=== PATIENT | female | born 1945 | race Caucasian/White ===

== ENCOUNTER 2016-08-22 08:51 | Observation (INO) | payer OTHER ==
[2016-08-22] MEDS ORDERED: BUPIVACAINE/EPI 0.25% 30 ML SDV ONE (09:16)
[2016-08-22] MEDS ORDERED: LIDOCAINE 1% 5 ML SDV ONE (09:30)
[2016-08-22] MEDS ORDERED: LR 1,000 ML IV ONE (09:46)
[2016-08-22] MEDS ORDERED: fentaNYL 100 MCG/2 ML INJ ONE (11:04)
[2016-08-22] MEDS ORDERED: PROPOFOL/EMULSION 500 MG/50 ML BOTTLE IV ONE (11:04)
[2016-08-22] MEDS ORDERED: CLINDAMYCIN 600 MG/DEXTROSE/50 ML BAG IV ONE (11:14)
[2016-08-22] MEDS ORDERED: ACETAMINOPHEN 325 MG TAB PO PRN (11:26)
[2016-08-22] MEDS ORDERED: CLINDAMYCIN 600 MG/DEXTROSE 50 ML IV ONE (11:30)
[2016-08-22] MEDS ORDERED: NS 1,000 ML IV SCH (11:30)
[2016-08-22] MEDS ORDERED: IBUPROFEN 200 MG TAB PO PRN (11:32)
--- NOTE | 2016-08-22 12:17 | GOP ---
[f rep st] OPERATIVE REPORT DATE OF OPERATION: 08/22/2016 SURGEON: Devin Correa MD BREAD JOCKEY: None. ANESTHESIA: Conscious sedation. 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 PROCEDURE PERFORMED: Distal ligation of ventriculoperitoneal shunt. FINDINGS: Successful shunt tie off. SPECIMENS: None. ESTIMATED BLOOD LOSS: Less than 5 cc. DESCRIPTION OF PROCEDURE: After informed consent was obtained from the patient, the patient was brou ght to the operating room, placed supine on the operating table. A formal timeout was performed iden tifying the patient by name, medical record number, and date of . Preoperative antibiotics were given. Conscious sedation was induced by Anesthesia. The chest was then prepped and draped in the normal sterile fashion. The previous incision where her shunt had been spliced before was then injected with 10 cc of 0.25% M arcaine with epinephrine and a skin incision was made using a 15 blade. The subcutaneous tissues wer e dissected bluntly, and the shunt catheter was identified and was dissected circumferentially. An 0 silk tie was then used to doubly ligate the catheter and was tied down tightly. At this point, the wound was closed using a 4-0 nylon vertical mattress stitches. The patient was awakened in the operating room and transferred to the PACU in stable condition. Ther e were no operative complications. I was scrubbed and present for the entire procedure. 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 She had developed posthemorrhagic hydroc ephalus and was treated with SHAPER SET UP OPERATOR shunting back then. She most recently had a shunt revision last year because of symptoms that she thought were from overdrainage, so the Certas valve was replaced with a n antisiphon device. She continues to have these symptoms and, despite the fact that she has been to ld by multiple neurosurgeons and myself that I did not think that these symptoms were related to the shunt, she has had persistent symptoms of fatigue, dizziness and headaches, which occur when she is u p and walking around for a few hours. She says that the symptoms reliably go away when she lies down . Given the fatigue and what not, I still did not think that these symptoms were probably consistent with a shunt problem however, the headaches could be due to overdrainage. We have adjusted her valv e to nearly every setting as possible on the Certas valve, and there has been no change in her sympto ms or the size of her ventricles. I therefore do not think that she probably needs a SHAPER SET UP OPERATOR shunt anymor e, so I told her that if we want to prove that this was a shunt problem or not we could tie the shunt off. She presents electively today for that procedure. I did tell her that there is the possibilit y that if she does still need shunt that she could certainly develop acute hydrocephalus, which could be concerning. Therefore, we did decide to admit her to the hospital overnight or possibly for a co uple of days for observation. DRAINS: None. /[id number]/MODL
--- NOTE | 2016-08-22 12:49 | POSTOPPROG ---
Post Op Note Date of Operation: 08/22/16 Surgeon: Devin Correa Anesthesia: IV Sedation Pre-op Diagnosis: shunt malfunction Post-op Diagnosis: same Procedure: Distal ligation of BOOK SORTER shunt Inf/Abcess present in the surg proc area at time of surgery?: No Depth: Organ Space EBL: Minimal (<5mL) Complications: None SOAP Progress Note Assessment/Plan: Assessment: Plan: 08/22/16 12:45 S: patient waking up in PACU doing well. O: VSS, VAD CN II-XII grossly intact FARIAS X4 BUE/BLE 11/18 = Incision c/d/i- below right clavicle A/P: 71 yo female sp distal ligation of BOOK SORTER shunt due to possible shunt malfunction/over draining -Admit to SDU -Watch closely for signs of acutre hydrocephalus- headaches, If complains of headaches- ok to treat with Tylenol/Ibuprofen NO NARCOTICS -If headaches persist call PA and will order Head CT wo contrast to check for hydrocephalus -Rpt Head CT in am tomorrow regardless -Neuro checks q2 -Continuous Pulse Ox - If doing ok tomorrow and head CT looks ok, can go home tomorrow -Call NS with any changes in neuro/motor exam Objective: Vital Signs Temp Pulse Resp BP Pulse Ox 36.8 C 71 16 148/79 H 98 08/22/16 11:56 08/22/16 11:56 08/22/16 11:56 08/22/16 12:16 08/22/16 12:16 08/21/16 08/22/16 08/23/16 05:59 05:59 05:59 Intake Total 550 Output Total 2 Balance 548
[2016-08-22] MEDS ORDERED: hydrALAZINE 10 MG TAB PO ONE (14:30)
[2016-08-22] MEDS: KETOROLAC 15 MG/1 ML SDV IVP PRN ×2 (14:42→23:21)
[2016-08-22] MEDS ORDERED: POLYVINYL ALCOHOL OP PRN (15:51)
[2016-08-22] MEDS ORDERED: TEMAZEPAM 15 MG CAP PO PRN (16:00)
[2016-08-22] MEDS ORDERED: TEARS/DEXTRAN 70/HYPROMELLOSE 15 ML OPHT.BTL EACHEYE PRN (16:02)
[2016-08-22] MEDS: NEBIVOLOL HCL 5 MG TAB PO SCH (16:55)
[2016-08-23 07:47] VITALS: PULSE 74; RESP 18
[2016-08-23] MEDS: NEBIVOLOL HCL 5 MG TAB PO SCH (07:55)
[2016-08-23] MEDS ORDERED: ESTRADIOL 10 MCG VG SCH (08:00)
--- NOTE | 2016-08-23 09:18 | NEUSURGPN ---
Assessment/Plan: 08/22/16 12:45 S: patient withmild headaches same as prior to surgery, but tolerable. Wants to go home later today. Still feeling fatigued similar to preop. 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 Correa as well - Physician Discussed Patient with Dr.: Correa Patient Seen by : [facility] Physical Exam - Vitals, I&O, Labs I and O 08/22/16 08/23/16 08/24/16 05:59 05:59 05:59 Intake Total 0 Output Total 1402 400 Balance 648 -400 Weight 58.967 kg Intake: Oral (ml) 600 IV Intake (ml) 550 IV Infused (ml) 900 Ns 1,000 ml @ 75 mls/hr 900 IV CONT ADI Rx#: [id number] Output: Urine (ml) 1400 400 Toilet 1400 400 Estimated Blood Loss (ml) 2 Other: Intake Quantity Yes Sufficient Number of Voids Toilet 2 1 Vital Signs Temp Pulse Resp BP Pulse Ox 36.6 C 74 18 157/88 H 93 08/23/16 07:45 08/23/16 07:45 08/23/16 07:45 08/23/16 07:45 08/23/16 07:45 ICD10 Worksheet Patient Problems: Problems Problem Status Diagnosed Shunt malfunction Acute - ICD10 Problem Qualifiers (1) Shunt malfunction
[2016-08-23 11:09] VITALS: BP 154/94; TEMP 97.5; O2SAT 92
--- NOTE | 2016-08-23 11:43 | CT ---
CT Head (Without Contrast) 10:55 a.m. Indication: Right-sided ventriculostomy shunt. Evaluate for hydrocephalus and acute process. Comparison: None Technique: Standard noncontrast head CT protocol utilizing 5 mm thick collimated slices and field of view of 23 cm. Dose reduction techniques were utilized. Findings: A right frontal ventriculostomy shunt catheter traverses the posterior right frontal lobe a nd has the tip terminating in the body of the right lateral ventricle near the foramen of Villarreal. No fracture or discontinuity of the shunt catheter. Minimal low attenuation encephalomalacia is present along the shunt catheter in the right frontal lobe. No intracranial hemorrhage or subdural hematoma. The ventricular system is normal caliber and midline. The third ventricle measures 6 to 7 mm medial t o lateral. Minimal periventricular low attenuation white matter disease is present in the frontal lobes. Aguiar-wh ite interfaces are preserved. No evidence of acute ischemia. The cervicooccipital junction is normal. The pituitary gland is normal in size. The paranasal sinuses are clear. Benign hyperostosis frontalis interna is present. Plates and screws are present along the right frontal temporal region. An aneurysm clip in the supraclinoid location partially obscures the low midline frontal lobes. Impression: 1. Well situated right frontal ventriculostomy shunt catheter. 2. No evidence of shunt dysfunction or subdural hematoma. 3. Minimal encephalomalacia along the shunt catheter in the right frontal lobe and minimal nonspecifi c periventricular white matter disease in the frontal lobes.
== END 2016-08-23 13:26 | disposition home or self-care (01) ==
LOC: INTOOBSV 08:51 → F3N 08:51
PROVIDERS: ADMIT Neurological Surgery; ATTEND Neurological Surgery
PROC: 0JW Subcutaneous Tissue and Fascia, Revision (ICD-10-PCS; principal; 2016-08-22 11:00)
DX: G91.9 Hydrocephalus, unspecified (principal); R53.83 Other fatigue; R51 Headache; T85.09XA Other mechanical complication of ventricular intracranial (communicating) shunt, initial encounter; R42 Dizziness and giddiness; Z86.718 Personal history of other venous thrombosis and embolism; I10 Essential (primary) hypertension; G47.33 Obstructive sleep apnea (adult) (pediatric); Z98.2 Presence of cerebrospinal fluid drainage device; Z86.79 Personal history of other diseases of the circulatory system
CPT/HCPCS: 62230; 70450; 92523; 97165; G8987; G8988; G8989; G9168; G9169; G9170; J1885; J2704; J3010

== ENCOUNTER → 2018-11-07 | Outpatient (CLI) | payer OTHER | LOC: BHFA 10:45 | PROVIDERS: ATTEND Internal Medicine Cardiovascular Disease | DX: I77.810 Thoracic aortic ectasia (principal) ==